=== PATIENT | female | born 1935 | race African-American/Black ===

== ENCOUNTER 2020-10-15 07:39 | Day surgery (SDC) | payer OTHER, BC ==
[2020-10-06 09:19] VITALS: BMI 31.2
[2020-10-15] MEDS ORDERED: ceFAZolin SODIUM 1 GM VIAL ONE (12:18)
[2020-10-15] MEDS ORDERED: MIDAZOLAM HCL 2 MG/2 ML SINGLE DOSE VIAL ONE (12:18)
[2020-10-15] MEDS ORDERED: LIDOCAINE HCL/PF 2% SDV 5ML VIAL ONE (12:18)
[2020-10-15] MEDS ORDERED: ONDANSETRON 4 MG/2 ML VIAL ONE (13:00)
[2020-10-15] MEDS ORDERED: KETOROLAC TROMETHAMINE 30 MG/1 ML VIAL ONE (13:12)
[2020-10-15] MEDS ORDERED: ACETAMINOPHEN 325 MG TABLET (FP) PO PRN (13:24)
[2020-10-15] MEDS ORDERED: oxyCODONE HCL 5 MG TABLET PO PRN (13:24)
[2020-10-15] MEDS ORDERED: ONDANSETRON 4 MG/2 ML VIAL IVPUSH PRN (13:24)
[2020-10-15] MEDS ORDERED: LACTATED RINGERS SOLUTION 1,000 ML IV SCH (13:30)
[2020-10-15 13:59] VITALS: TEMP 97.8
[2020-10-15 17:35] VITALS: BP 138/66; PULSE 72
== END 2020-10-15 15:00 | disposition home or self-care (01) ==
LOC: FASU 07:39
PROVIDERS: ATTEND Orthopaedic Surgery Orthopaedic Surgery of the Spine
PROC: 01N50ZZ Release Median Nerve, Open Approach (ICD-10-PCS; principal; 2020-10-15 12:53)
DX: G56.02 Carpal tunnel syndrome, left upper limb (principal)
CPT/HCPCS: 82962; 94760